=== PATIENT | male | born 1950 | race Caucasian/White ===

== ENCOUNTER 2022-05-31 12:37 | Emergency (ER) | payer OTHER ==
[2022-05-31 13:01] VITALS: BP 120/75; PULSE 90; RESP 18; TEMP 98.4; BMI 23.5
[2022-05-31] MEDS ORDERED: METHOCARBAMOL 750 MG TAB PO ONE (15:24)
[2022-05-31] MEDS ORDERED: LIDOCAINE 5% TOPICAL PATCH TP ONE (15:24)
[2022-05-31] MEDS ORDERED: LIDOCAINE 5% TOPICAL PATCH ONE (15:38)
[2022-05-31] MEDS ORDERED: METHOCARBAMOL 500 MG TABLET PO ONE (15:39)
[2022-05-31] MEDS ORDERED: METHOCARBAMOL 500 MG TABLET ONE (15:39)
[2022-05-31] MEDS ORDERED: LIDOCAINE PATCH REMOVAL MC SCH (22:00)
== END 2022-05-31 15:57 | disposition home or self-care (01) ==
LOC: JER 12:37
DX: M62.838 Other muscle spasm (principal)
CPT/HCPCS: 99283-25